=== PATIENT | female | born 1990 | race Caucasian/White ===

== ENCOUNTER 2023-12-15 01:44 | Emergency (ER) | payer MEDICAID ==
[~2023-12-15] VITALS: Ht 177.8 cm; Wt 70.0 kg
[2023-12-15 01:50] VITALS: BP 146/101; PULSE 127; RESP 20; TEMP 98.2; O2SAT 99
[2023-12-15] MEDS: LORAZEPAM 1MG TABLET PO ONE (02:30)
[2023-12-15] MEDS ORDERED: OLANZAPINE 10 MG/VIAL IM ONE (03:15)
[2023-12-16] MEDS ORDERED: QUET300T2 MT (12:45)
[2023-12-16] MEDS ORDERED: QUET100T34 PO (13:49)
== END 2023-12-15 03:23 | disposition left against medical advice (07) ==
LOC: ER 01:46
DX: F41.9 Anxiety disorder, unspecified (principal); I49.9 Cardiac arrhythmia, unspecified; Z86.59 Personal history of other mental and behavioral disorders
CPT/HCPCS: 93005; 99283